=== PATIENT | female | born 1945 | race Caucasian/White ===

== ENCOUNTER 2019-12-26 18:30 | Inpatient (IN) ==
[2019-12-26] MEDS ORDERED: D5% in Water 1,000 ML IVC PRN (18:50)
[2019-12-26] MEDS ORDERED: *HR* Dextrose 50 % in Water (Vial) 50 ML VIAL IVP PRN (18:50)
[2019-12-26] MEDS ORDERED: Dextrose Gel 15 GM/37.5 ML TUBE PO PRN ×2 (18:50)
[2019-12-26] MEDS: levETIRAcetam 250 MG TABLET PO SCH (22:13)
[2019-12-26] MEDS: Insulin LISPRO 300 UNITS/3 ML VIAL SQ SCH (22:13)
[2019-12-26] MEDS: QUEtiapine Fumarate 25 MG TABLET PO SCH (22:14)
[2019-12-26] MEDS: Carbidopa/Levodopa ER 50/200 TABLET PO SCH (22:14)
[2019-12-26] MEDS: Pregabalin 50 MG CAPSULE PO SCH (22:14)
[2019-12-27 08:03] LABS: Basophils # 0.1 K/mcL (0.0-0.2); Basophils % 0.8 %; Eosinophils # 0.2 K/mcL (0.0-0.6); Eosinophils % 1.8 %; Hematocrit 31.7 % (35.3-44.9); Hemoglobin 10.2 g/dL (11.5-15.4); Immature Granulocytes % 0.4 % (0-4); Lymphocytes # 2.3 K/mcL (0.6-4.6); Lymphocytes % 23.8 %; Mean Corpuscular HGB Conc 32.2 g/dL (31.6-35.5); Mean Corpuscular Hemoglobin 25.8 pg (28.0-33.3); Mean Corpuscular Volume 80.3 fL (83.0-100.0); Mean Platelet Volume 11.8 fL (9.4-12.4); Monocytes # 0.8 K/mcL (0.0-1.3); Monocytes % 7.8 %; Neutrophils # 6.2 K/mcL (1.6-8.9); Platelet Count 191 K/mcL (140-400); Red Blood Count 3.95 M/mcL (3.82-4.97); Red Cell Distribution Width 14.3 % (11.5-14.5); Segmented Neutrophils % 65.4 %; White Blood Count 9.6 K/mcL (4.3-11.1)
[2019-12-27 08:17] LABS: BUN/Creatinine Ratio 22 (6-26); Blood Urea Nitrogen 19 mg/dL (8-23); Calcium 8.8 mg/dL (8.6-10.3); Carbon Dioxide 26 mEq/L (23-29); Chloride 96 mEq/L (98-107); Glucose 269 mg/dL (70-105); Osmolality,Calculated 286 (280-300); Potassium 3.7 mEq/L (3.5-5.1); Sodium 132 mEq/L (136-145); eGFR For African Americans > 60 (> 60); eGFR For Non-African Americans > 60 (> 60)
[2019-12-27] MEDS ORDERED: Insulin NPH/REG 70/30 100 UNIT/ML (x5UNIT) SQ SCH ×2 (09:00→17:00)
[2019-12-27] MEDS: carvediloL 6.25 MG TABLET PO SCH ×2 (09:03→17:25)
[2019-12-27] MEDS: Cyanocobalamin (B-12) 1,000 MCG TABLET PO SCH (09:04)
[2019-12-27] MEDS: *HR* Metformin 500 MG TABLET PO SCH ×2 (09:04→17:25)
[2019-12-27] MEDS: Aspirin 81 MG TAB.CHEW PO SCH (09:04)
[2019-12-27] MEDS: Lactulose Oral Soln 20 GM/30 ML UDC PO SCH (09:04)
[2019-12-27] MEDS: QUEtiapine Fumarate 25 MG TABLET PO SCH (09:05)
[2019-12-27] MEDS: levETIRAcetam 250 MG TABLET PO SCH ×2 (09:05→20:22)
[2019-12-27] MEDS: Carbidopa/Levodopa ER 50/200 TABLET PO SCH ×2 (09:05→20:23)
[2019-12-27] MEDS: Pregabalin 50 MG CAPSULE PO SCH (09:05)
[2019-12-27] MEDS: Insulin LISPRO 300 UNITS/3 ML VIAL SQ SCH ×4 (09:05→20:24)
[2019-12-27] MEDS ORDERED: 0.9 % Sodium Chloride 500 ML IV ONE (16:24)
[2019-12-27 17:11] LABS: Bilirubin,Urine Negative (Negative); Blood,Urine Large (Negative); Clarity,Urine Cloudy (Clear); Color,Urine Yellow (Yellow); Glucose,Urine (UA) Normal (Normal); Ketones,Urine Trace mg/dL (Negative); Leukocyte Esterase,Urine Moderate (Negative); Nitrite,Urine Negative (Negative); Protein,Urine >=300 mg/dL (Neg-Trace); Specific Gravity,Urine 1.025 (1.010-1.025); Urobilinogen,Urine Normal (Normal)
[2019-12-27] MEDS ORDERED: 0.9 % Sodium Chloride 500 ML ONE (17:21)
[2019-12-27 18:04] LABS: Bacteria,Urine Many per hpf (None-Few); RBC,Urine 15-30 per hpf (0-3); Squamous Epithelial Cell,Urine Few per hpf (None-Few); WBC,Urine TNTC per hpf (0-3)
[2019-12-27] MEDS: 0.9 % Sodium Chloride 1,000 ML IVC SCH ×2 (18:50→22:30)
[2019-12-27] MEDS: cefTRIAXone 2,000 MG in 0.9 % Sodium Chloride Mini Bag 100 ML IVPB SCH (18:52)
[2019-12-28 08:04] LABS: Basophils # 0.1 K/mcL (0.0-0.2); Basophils % 0.6 %; Eosinophils # 0.1 K/mcL (0.0-0.6); Eosinophils % 1.6 %; Hematocrit 30.7 % (35.3-44.9); Immature Granulocytes % 0.5 % (0-4); Lymphocytes % 24.7 %; Mean Corpuscular HGB Conc 32.6 g/dL (31.6-35.5); Mean Corpuscular Hemoglobin 26.1 pg (28.0-33.3); Mean Corpuscular Volume 80.2 fL (83.0-100.0); Mean Platelet Volume 11.4 fL (9.4-12.4); Monocytes # 0.6 K/mcL (0.0-1.3); Monocytes % 7.5 %; Neutrophils # 5.3 K/mcL (1.6-8.9); Platelet Count 209 K/mcL (140-400); Red Blood Count 3.83 M/mcL (3.82-4.97); Red Cell Distribution Width 14.3 % (11.5-14.5); Segmented Neutrophils % 65.1 %; White Blood Count 8.2 K/mcL (4.3-11.1)
[2019-12-28 08:33] LABS: BUN/Creatinine Ratio 20 (6-26); Blood Urea Nitrogen 17 mg/dL (8-23); Calcium 8.4 mg/dL (8.6-10.3); Carbon Dioxide 25 mEq/L (23-29); Chloride 99 mEq/L (98-107); Glucose 291 mg/dL (70-105); Magnesium 1.6 mg/dL (1.6-2.6); Osmolality,Calculated 290 (280-300); Potassium 3.9 mEq/L (3.5-5.1); Sodium 134 mEq/L (136-145); eGFR For African Americans > 60 (> 60); eGFR For Non-African Americans > 60 (> 60)
[2019-12-28] MEDS: Cyanocobalamin (B-12) 1,000 MCG TABLET PO SCH (08:47)
[2019-12-28] MEDS: carvediloL 6.25 MG TABLET PO SCH ×2 (08:48→17:29)
[2019-12-28] MEDS: *HR* Metformin 500 MG TABLET PO SCH ×2 (08:48→17:28)
[2019-12-28] MEDS: levETIRAcetam 250 MG TABLET PO SCH ×2 (08:48→21:13)
[2019-12-28] MEDS: Lactulose Oral Soln 20 GM/30 ML UDC PO SCH (08:48)
[2019-12-28] MEDS: Aspirin 81 MG TAB.CHEW PO SCH (08:48)
[2019-12-28] MEDS: Insulin LISPRO 300 UNITS/3 ML VIAL SQ SCH ×4 (08:49→21:16)
[2019-12-28] MEDS: Carbidopa/Levodopa ER 50/200 TABLET PO SCH ×2 (08:52→21:13)
[2019-12-28] MEDS: Sulfamethoxazole/Trimeth DS 1 EACH TABLET PO SCH (21:13)
[2019-12-28] MEDS: 0.9 % Sodium Chloride 1,000 ML IVC SCH (23:45)
[2019-12-28] MEDS: cefTRIAXone 2,000 MG in 0.9 % Sodium Chloride Mini Bag 100 ML IVPB SCH (23:46)
[2019-12-29] MEDS: Insulin LISPRO 300 UNITS/3 ML VIAL SQ SCH ×4 (08:50→20:07)
[2019-12-29] MEDS: Aspirin 81 MG TAB.CHEW PO SCH (09:06)
[2019-12-29] MEDS: Sulfamethoxazole/Trimeth DS 1 EACH TABLET PO SCH ×2 (09:07→20:06)
[2019-12-29] MEDS: carvediloL 6.25 MG TABLET PO SCH (09:09)
[2019-12-29] MEDS: *HR* Metformin 500 MG TABLET PO SCH ×2 (09:13→17:29)
[2019-12-29] MEDS: Cyanocobalamin (B-12) 1,000 MCG TABLET PO SCH (09:15)
[2019-12-29] MEDS: levETIRAcetam 250 MG TABLET PO SCH ×2 (09:16→20:06)
[2019-12-29] MEDS: Lactulose Oral Soln 20 GM/30 ML UDC PO SCH (09:18)
[2019-12-29] MEDS: Carbidopa/Levodopa ER 50/200 TABLET PO SCH ×2 (09:18→20:06)
[2019-12-29] MEDS: carvediloL 25 MG TABLET PO SCH (17:29)
[2019-12-29] MEDS: Insulin DETEMIR 100 UNIT/ML X5UNITS SQ SCH (20:07)
[2019-12-29] MEDS: Ondansetron ODT 4 MG TAB.RAPDIS SL PRN (20:44)
[2019-12-30] MEDS: Insulin LISPRO 300 UNITS/3 ML VIAL SQ SCH ×4 (09:56→20:03)
[2019-12-30] MEDS: levETIRAcetam 250 MG TABLET PO SCH ×2 (09:57→20:04)
[2019-12-30] MEDS: Aspirin 81 MG TAB.CHEW PO SCH (09:58)
[2019-12-30] MEDS: Carbidopa/Levodopa ER 50/200 TABLET PO SCH ×2 (09:58→20:08)
[2019-12-30] MEDS: carvediloL 25 MG TABLET PO SCH ×2 (09:58→17:16)
[2019-12-30] MEDS: *HR* Metformin 500 MG TABLET PO SCH ×2 (09:58→17:16)
[2019-12-30] MEDS: Lactulose Oral Soln 20 GM/30 ML UDC PO SCH (09:58)
[2019-12-30] MEDS: Cyanocobalamin (B-12) 1,000 MCG TABLET PO SCH (09:58)
[2019-12-30] MEDS: Sulfamethoxazole/Trimeth DS 1 EACH TABLET PO SCH ×2 (09:58→20:08)
[2019-12-30] MEDS: Insulin DETEMIR 100 UNIT/ML X5UNITS SQ SCH (20:03)
[2019-12-30] MEDS ORDERED: QUEtiapine Fumarate 25 MG TABLET PO PRN (22:46)
[2019-12-31 06:36] LABS: Hematocrit 32.9 % (35.3-44.9); Hemoglobin 10.8 g/dL (11.5-15.4); Mean Corpuscular HGB Conc 32.8 g/dL (31.6-35.5); Mean Corpuscular Hemoglobin 26.4 pg (28.0-33.3); Mean Corpuscular Volume 80.4 fL (83.0-100.0); Mean Platelet Volume 11.4 fL (9.4-12.4); Platelet Count 256 K/mcL (140-400); Red Blood Count 4.09 M/mcL (3.82-4.97); Red Cell Distribution Width 14.1 % (11.5-14.5); White Blood Count 13.9 K/mcL (4.3-11.1)
[2019-12-31 06:53] LABS: Calcium 8.9 mg/dL (8.6-10.3); Magnesium 1.6 mg/dL (1.6-2.6); Potassium 4.1 mEq/L (3.5-5.1)
[2019-12-31] MEDS: *HR* Metformin 500 MG TABLET PO SCH ×2 (08:31→16:10)
[2019-12-31] MEDS: levETIRAcetam 250 MG TABLET PO SCH ×2 (08:31→20:22)
[2019-12-31] MEDS: Sulfamethoxazole/Trimeth DS 1 EACH TABLET PO SCH ×2 (08:32→20:21)
[2019-12-31] MEDS: Lactulose Oral Soln 20 GM/30 ML UDC PO SCH (08:32)
[2019-12-31] MEDS: carvediloL 25 MG TABLET PO SCH ×2 (08:32→16:10)
[2019-12-31] MEDS: Aspirin 81 MG TAB.CHEW PO SCH (08:32)
[2019-12-31] MEDS: Carbidopa/Levodopa ER 50/200 TABLET PO SCH ×2 (08:32→20:22)
[2019-12-31] MEDS: Cyanocobalamin (B-12) 1,000 MCG TABLET PO SCH (08:33)
[2019-12-31] MEDS: Insulin LISPRO 300 UNITS/3 ML VIAL SQ SCH ×4 (08:33→20:23)
[2019-12-31] MEDS: Ondansetron ODT 4 MG TAB.RAPDIS SL PRN (19:41)
[2019-12-31] MEDS: Insulin DETEMIR 100 UNIT/ML X5UNITS SQ SCH (20:22)
[2020-01-01] MEDS: *HR* Metformin 500 MG TABLET PO SCH ×2 (08:23→16:05)
[2020-01-01] MEDS: levETIRAcetam 250 MG TABLET PO SCH ×2 (08:23→20:51)
[2020-01-01] MEDS: carvediloL 25 MG TABLET PO SCH ×2 (08:23→16:05)
[2020-01-01] MEDS: Carbidopa/Levodopa ER 50/200 TABLET PO SCH ×2 (08:24→20:51)
[2020-01-01] MEDS: Sulfamethoxazole/Trimeth DS 1 EACH TABLET PO SCH ×2 (08:24→20:51)
[2020-01-01] MEDS: Aspirin 81 MG TAB.CHEW PO SCH (08:24)
[2020-01-01] MEDS: Cyanocobalamin (B-12) 1,000 MCG TABLET PO SCH (08:25)
[2020-01-01] MEDS: Lactulose Oral Soln 20 GM/30 ML UDC PO SCH (08:25)
[2020-01-01] MEDS: Insulin LISPRO 300 UNITS/3 ML VIAL SQ SCH ×4 (08:30→20:51)
[2020-01-01] MEDS: Insulin DETEMIR 100 UNIT/ML X5UNITS SQ SCH (20:51)
[2020-01-02] MEDS: Insulin LISPRO 300 UNITS/3 ML VIAL SQ SCH ×4 (07:26→21:25)
[2020-01-02] MEDS: *HR* Metformin 500 MG TABLET PO SCH ×2 (09:15→16:30)
[2020-01-02] MEDS: Cyanocobalamin (B-12) 1,000 MCG TABLET PO SCH (09:15)
[2020-01-02] MEDS: Lactulose Oral Soln 20 GM/30 ML UDC PO SCH (09:15)
[2020-01-02] MEDS: levETIRAcetam 250 MG TABLET PO SCH ×2 (09:16→20:50)
[2020-01-02] MEDS: carvediloL 25 MG TABLET PO SCH ×2 (09:18→16:30)
[2020-01-02] MEDS: Carbidopa/Levodopa ER 50/200 TABLET PO SCH ×2 (09:18→20:55)
[2020-01-02] MEDS: Sulfamethoxazole/Trimeth DS 1 EACH TABLET PO SCH ×2 (09:18→20:58)
[2020-01-02] MEDS: Aspirin 81 MG TAB.CHEW PO SCH (09:18)
[2020-01-02] MEDS: Insulin DETEMIR 100 UNIT/ML X5UNITS SQ SCH (21:24)
[2020-01-03 07:28] VITALS: BP 163/76
[2020-01-03] MEDS: Lactulose Oral Soln 20 GM/30 ML UDC PO SCH (08:37)
[2020-01-03] MEDS: *HR* Metformin 500 MG TABLET PO SCH (08:38)
[2020-01-03] MEDS: carvediloL 25 MG TABLET PO SCH (08:38)
[2020-01-03] MEDS: Sulfamethoxazole/Trimeth DS 1 EACH TABLET PO SCH (08:38)
[2020-01-03] MEDS: levETIRAcetam 250 MG TABLET PO SCH (08:38)
[2020-01-03] MEDS: Carbidopa/Levodopa ER 50/200 TABLET PO SCH (08:38)
[2020-01-03] MEDS: Cyanocobalamin (B-12) 1,000 MCG TABLET PO SCH (08:39)
[2020-01-03] MEDS: Aspirin 81 MG TAB.CHEW PO SCH (08:39)
[2020-01-03] MEDS: Insulin LISPRO 300 UNITS/3 ML VIAL SQ SCH ×2 (09:00→12:01)
== END 2020-01-03 14:00 | DRG 945 ==
LOC: INPPIK 19:45
PROVIDERS: ADMIT Family Medicine; ATTEND Family Medicine